=== PATIENT | male | born 1955 | race Two or more races ===

== ENCOUNTER 2024-02-23 11:31 | Emergency (ER) | payer OTHER ==
[~2024-02-23] VITALS: Ht 185.4 cm; Wt 104.3 kg
[2024-02-23] MEDS ORDERED: METFORMIN HCL1000 MG (12:01)
[2024-02-23] MEDS ORDERED: LEVOTHYROXINE25 MCG (12:01)
[2024-02-23] MEDS ORDERED: AMLODIPINE-OLM1 EAC2 (12:01)
[2024-02-23] MEDS ORDERED: EZALLOR SPRINKL10 MG (12:01)
[2024-02-23] MEDS ORDERED: FENOFIBRATE150 MG (12:02)
[2024-02-23] MEDS ORDERED: COZAAR100 MG (12:02)
[2024-02-23] MEDS ORDERED: DEXAMETHASONE SODIUM PHOSPHATE 4 MG/ML VIAL ONE (12:25)
[2024-02-23] MEDS ORDERED: DEXAMETHASONE SODIUM PHOSPHATE 4 MG/ML VIAL IV ONE (12:30)
== END 2024-02-23 18:58 | disposition home or self-care (01) ==
LOC: ER 11:33
DX: G51.0 Bell's palsy (principal); Z88.0 Allergy status to penicillin